=== PATIENT | female | born 1980 | race Caucasian/White ===

== ENCOUNTER → 2018-08-11 | Day surgery (SDC) | payer OTHER ==
[~2018-08-11] VITALS: Ht 157.5 cm; Wt 121.6 kg
[~2018-08-11] MED LIST: CENTRUM SILVER1 EAC4 PO; IRON325 PO; LISINOPRIL-HCT1 EACH PO; MAGNESIUM CITR100 MG PO; METFORMIN HCL500 M2 PO; PHENTERMINE H37.5 MG PO; VENTOLIN HFA 1818 GM INH; VITAMIN B COMP1 EACH PO; VITAMIN D2000 UNIT PO
--- NOTE | ~2018-08-11 | O ---
[facility] [place] [address] OPERATIVE REPORT Name: CARIE CAMACHO Room #: REG [facility]#: [id number] Admission: 08/11/18 ������������������ Attend Phys: Hermes Estes MD Discharge: ������������������ Date of : [birth year] Report #: [id number] THIS REPORT FOR: //name// CC: Franklin Estes DATE OF SERVICE: 08/11/2018 PREOPERATIVE DIAGNOSES: Septal perforation, septal deformity, turbinate hypertrophy. POSTOPERATIVE DIAGNOSES: Septal perforation, septal deformity, turbinate hypertrophy. PROCEDURE: Nasal septal reconstruction with repair of septal perforation with harvesting of a composite graft, turbinate reduction and outfracturing. SURGEON: Hermes Estes MD ANESTHESIA: General LMA. INDICATIONS: See H and P. FINDINGS: There is a somewhat oval shaped perforation of the anterior septum measuring 7 mm x 9 mm. There was a deviation of the quadrangular cartilage posteriorly and inferiorly separate from the perforation to the patient's left side. Biopsies were taken of the septal perforation mucosa with findings negative for malignancy. TECHNIQUE: After obtaining consent, she was brought to the operating suite, appropriate timeout was performed. General LMA anesthesia was obtained. The nose was prepped and draped in usual sterile fashion. A 5 mL of 1% Xylocaine and 1:100,000 epinephrine were injected on each side of the septum and around the septal perforation edges. After waiting several minutes, using cup forceps, I circumferentially took biopsies of the perforation margins circumferentially back to healthy bleeding tissue. Frozen section returned as negative for malignancy and no obvious evidence of vasculitis. Using a caudal elevator, I elevated the mucosal flap on the patient's left side of the posterior edge of the perforation back on the left side and then brought that slightly anteriorly. I then turned to the hemitransfixion incision which was made on the right side. I elevated the mucoperichondrial flap on the patient's left side to the anterior edge of the perforation and then connected both the superior and inferior tunnel to the artery to previously elevated posterior left septal flap. This was carried back to the mucoperiosteal area where a mucoperiosteal flap on the left side was elevated off the vomer and perpendicular plate. This allowed me to fully expose the left side leaving the mucosa and the perichondrium, [address] [address] OPERATIVE REPORT Name: CAMACHOCARIE L Room #: REG [facility].#: [id number] Admission: 08/11/18 ������������������ Attend Phys: Hermes Estes MD Discharge: ������������������ Date of : [birth year] Report #: [id number] periosteum attached to the septum still on the right side. At this point, I selected an area on the superior anterior quadrangular cartilage well away from the perforation and I harvested a graft from the patient's right side and included the mucosa, perichondrium and cartilage making this slightly larger than the actual perforation. This was done using a [place] blade and iris scissors. No mucosal tear was made on the adjacent left mucoperichondrial flap during removal of the graft. The graft ____ on the back table to air dry. I then elevated the mucosal flaps on the patient's right side and was able to take down the bony quadrangular cartilage spur that was on the patient's left side with [place]-H[place]rickson scissors, Radha forceps as well as taking some deviated quadrangular cartilage more posterior back to the vomer. This allowed for the airway to improve on the patient's left side substantially. At this point, a previously harvested cartilage from the septoplasty was trimmed, morcellized. I placed this back between the septal fold specifically at the area where the graft was harvested so that there would be a mucoperichondrial flap and quadrangular cartilage at this area. I then placed the graft in place and sutured it with a 4-0 fast absorbing Jaxon to the septal mucosa anteriorly and posteriorly. Location was reasonable. After suturing in place, I then closed the hemitransfixion incision with 4-0 chromic simple interrupted sutures. Each inferior turbinate was addressed by using a milliliter of local anesthetic infiltrating in the medial surface of the inferior turbinate to perform a submucous resection bilaterally. Each inferior turbinate was then outfractured. Guthrie splints were thoroughly lubricated with antibiotic ointment, trimmed on their posterior edges and the Guthrie's were placed under direct visualization making sure not to disturb the composite graft for septal perforation. These were then sewn in place with a single 3-0 Prolene suture. I reinspected the Guthrie splints, were seen to be good apposition against the graft. There were no unfurled edges of the mucosal flaps from the septoplasty portion of the procedure. At this point, she was turned back over to anesthesia, lightened, taken to recovery room in stable condition after extubation. Estimated blood loss was 5 mL. ��������������������������������������������� ���������������������������������������� By: ��������������������������������������������� 0935 1050 Hermes Estes MD /srini
--- NOTE | 2018-08-11 07:29 | EKG ---
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1980 Requested By: Carlos Eduardo Farias Order Number: [id number] MD: Jacinto Hua Measurements Intervals [place] Rate: 72 P: 14 SD: 136 QRS: -1 QRSD: 87 T: 15 QT: 438 QTc: 480 Interpretive Statements Sinus rhythm Poor R wave progression No previous ECG available for comparison Electronically Signed On 08-11-2018 7:29:39 CDT by Jacinto Hua [email or web address] ��������������������������������������������� <ELECTRONICALLY SIGNED> ���������������������������������������� By: Jacinto Hua MD, [facility] ��������������������������������������������� 08/11/18 0729 0701 0 Jacinto Hua MD, FACC /EPI
[2018-08-11 07:31] VITALS: BP 148/71
--- NOTE | 2018-08-11 07:50 | H ---
[facility] [place] [address] HISTORY AND PHYSICAL Name: CARIE CAMACHO Room #: REG [facility].#: [id number] Admission: 08/11/18 ������������������ Attend Phys: Hermes Estes MD Discharge: ������������������ Date of : 82 Report #: [id number] THIS REPORT FOR: //name// CC: Hermes Cedilloelle Parvez ANTICIPATED DATE OF SURGERY: 08/11/2018. CHIEF COMPLAINT: Nasal septal perforation, septal deviation, nasal congestion. HISTORY: The patient is a 37-year-old female, who presented in May of this year with a complaint of recurrent "sinus infections and allergies." She previously had a history of use of nasal steroid sprays along with topical Afrin nasal spray. She denied any use of illicit drugs, finger manipulation of the septum or previous trauma to the nose. She has not had any previous histories of epistaxis. Examination at that time demonstrated a small central perforation septum about 5 to 8 mm in size without significant crusting and a moderately deformed nasal septum. Initial therapy was recommended on stopping the use of the steroid sprays and Afrin. She was given hygiene instructions and instructions on how to keep the nose moist. She returned approximately a month later, the septal perforation had not changed in size, the edges were cleaned; however, it did not close. We did obtain a sleep study to ensure she did not have any sleep disordered breathing issues with the sleep study demonstrating a normal apnea-hypopneic index. The patient returned in July to discuss treatment options for her nasal septal deviation, nasal obstruction, congestion and perforation. Examination did not reveal any significant changes in the size of the perforation. I discussed with her the options of nonsurgical and surgical closure of her septal perforation including a septal button. No treatment of the septal perforation aside from avoidance of medications and moisturization or the use of surgical therapy, which include limited septoplasty along with septal graft followed by placement of splints for several weeks until closure. Initial attempt would be to use her own tissues suppose using an autologous grafting material. The patient understood the risks and benefits involved and agrees to proceed forward at this time. ALLERGIES TO MEDICINE: Include CODEINE. MEDICATIONS ON ADMISSION: Include chlorthalidone 25 mg once a day, lisinopril/hydrochlorothiazide 10/12.5 mg once a day, pilocarpine 5 mg as needed, tizanidine 4 mg once a day. PAST MEDICAL AND PAST SURGICAL HISTORY: Notable for hypertension, anxiety, depression, headaches, and migraines. Past surgical history is unremarkable. FAMILY HISTORY: Unremarkable for any disorders. The patient does volunteer she uses tobacco products regularly. [place] [id number] HISTORY AND PHYSICAL Name: CARIE CAMACHO Room #: REG [facility]..#: [id number] Admission: 08/11/18 ������������������ Attend Phys: Hermes Estes MD Discharge: ������������������ Date of : [birth year] Report #: [id number] PHYSICAL EXAMINATION: VITAL SIGNS: Height of 5 feet 4 inches, weight of 254 pounds. HEENT: As noted above for the nasal anatomy. Remainder of the nares appears normal. Oral cavity and oropharynx are normal. CHEST: Clear. CARDIOVASCULAR: Regular rate and rhythm. ASSESSMENT: History of nasal septal deformity, nasal septal perforation and nasal congestion. PLAN: Plan will be for the above-mentioned surgery. ��������������������������������������������� <ELECTRONICALLY SIGNED> ���������������������������������������� By: Hermes Estes MD ��������������������������������������������� 08/11/18 0750 1420 1517 Hermes Estes MD /nt
[2018-08-11 09:47] VITALS: BP 148/71
--- NOTE | 2018-08-15 14:08 | PATH ---
[facility] [address] [address] PATHOLOGY RPT PROCEDURE Name: LIDIA CAMACHO Room #: REG [facility]..#: [id number] ������������������ Admission: 08/11/18 ������������������ Date of : 82 Discharge: Report #: [id number] Path Case #: [id number] [facility] Accession Number: [id number] . 01 Material submitted: . nasal cavity - SEPTAL MUCOSA - FS . 02 Frozen section diagnosis: . INTRAOPERATIVE CONSULTATION WITH FROZEN SECTION: FSA1. Septal mucosa, biopsy: - Squamous epithelial fragment with papillomatous changes and marked acute inflammation on FSA1 slide. . These findings are discussed with Dr. Hermes Estes in OR1 at [facility]. A written report is placed in the patient's chart. (IUV:mml; 08/11/2018) . . FROZEN SECTION GROSS DESCRIPTION: Received fresh from the OR, labeled, "Lidia Camacho (MR# [id number]) - Septal mucosa", are tiny red-jensen fragments of tissue measuring approximately 0.1 to 0.2 cm each. The entire specimen is submitted for frozen section as FSA1, subsequently submitted for permanent section as A1. (IUV:mml; 08/11/2018) . . . Frozen section performed at [facility], [address] , [place] [address]. IZV/QLM . 02 Diagnosis: Septal mucosa, biopsy: - Papillomatous changes with mild squamous dysplasia as well as reactive atypia and marked acute inflammation. (Please see comment). . (IUV:mml; 08/15/2018) [facility]/08/15/2018 . 02 Comment: Examination shows squamous epithelium-lined mucosal fragments associated with marked acute inflammation as well as reparative changes. Mild squamous dysplasia is present; however, high grade dysplasia, or definitive invasive features are not identified. There is no desmoplasia present. P16 immunohistochemical stain is performed on block A1 and it shows no evidence of diffuse reactivity present. . [address] [address] PATHOLOGY RPT PROCEDURE Name: LIDIA CAMACHO Room #: REG [facility].#: [id number] ������������������ Admission: 08/11/18 ������������������ Date of : 82 Discharge: Report #: [id number] Path Case #: [id number] Dr. Virginia Bright has seen insurance follow up representative slide of this case and concurs with the diagnosis rendered. . (IUV:mml; 08/15/2018) . 02 Electronically signed: . Susan Parker MD, Pathologist NPI- [id number] . 01 Gross description: . SEE FROZEN SECTION GROSS DESCRIPTION: /QLM . 02 Pathologist provided ICD-10: J34.89 . 02 CPT . 878722, [id number], [id number] Specimen Comment: A courtesy copy of this report has been sent to Specimen Comment: [phone], . Specimen Comment: Report sent to / DR SWENSON Performed at: [address], [place] [id number] MD Vick Coulter MD Phone: [phone] Performed at: [address] [id number] MD Susan Parker MD Phone: [phone]
== END | disposition home or self-care (01) ==
LOC: OR 06:24
DX: J34.2 Deviated nasal septum (principal); J34.89 Other specified disorders of nose and nasal sinuses; J34.3 Hypertrophy of nasal turbinates; I10 Essential (primary) hypertension; J45.909 Unspecified asthma, uncomplicated; F32.9 Major depressive disorder, single episode, unspecified; F41.9 Anxiety disorder, unspecified; G43.909 Migraine, unspecified, not intractable, without status migrainosus; F17.210 Nicotine dependence, cigarettes, uncomplicated; Z88.8 Allergy status to other drugs, medicaments and biological substances; Z98.890 Other specified postprocedural states; Z79.899 Other long term (current) drug therapy; Z88.6 Allergy status to analgesic agent
CPT/HCPCS: 50010; 50101; 50386; 50398; 51634; 53635; 56524; 56526; 56528; 62110; 62900; 64037; 70005